=== PATIENT | female | born 1970 | race Caucasian/White ===

== ENCOUNTER 2016-04-15 05:31 | Inpatient (IN) | payer OTHER ==
[~2016-04-15] VITALS: Ht 154.9 cm; Wt 110.7 kg
[2016-04-15] MEDS: LACTATED RINGER'S 1000 ML INJ 1,000 ML IV SCH ×3 (03:15→19:00)
[~2016-04-15 05:31] MED LIST: ALBI1INJ SQ; METF-382 PO; METF500T4 PO; PRIL20CA9 PO; SERT-132 PO; SIMV20TA PO; TELM1TAB PO
[2016-04-15] MEDS ORDERED: LACTATED RINGER'S 1000 ML IV SCH (06:00)
[2016-04-15] MEDS ORDERED: SODIUM CHLORID 0.9% 500 ML IV SCH (06:00)
[2016-04-15] MEDS ORDERED: INSULIN HUMAN REGULAR 1,000 UNITS/10 ML VIAL SQ PRN (06:00)
[2016-04-15] MEDS ORDERED: ceFAZolin 2 GM PREMIX 50 ML IV SCH (06:00)
[2016-04-15] MEDS ORDERED: METOPROLOL TARTRATE 25 MG TAB PO PRN (06:00)
[2016-04-15 06:17] VITALS: BP 133/83; PULSE 94; RESP 18; TEMP 97.9; O2SAT 98
--- NOTE | 2016-04-15 06:54 | MH ---
cc: SERGEY OROZCO DATE OF ADMISSION 04/15/2016 DATE OF 1970 HISTORY AND PHYSICAL This is a 45-year-old white female who is a 4 para 3 with both vaginal births and section. Patient is scheduled for a laparoscopic-assisted vaginal hysterectomy, bilateral salpingectomy. The patient is aware of the risks, benefits and alternatives. The patient has been followed by Dr. De León with a large fibroid uterus about 18-weeks' size. The patient has an adequate vagina and good descent and has been extensively counseled about this surgery. The patient is aware of medical management versus surgical management and desires surgical management. PAST MEDICAL HISTORY Significant for high blood pressure and diabetes. GYNECOLOGIC HISTORY She has a history of an abnormal Pap smear, but none recently. OBSTETRICAL HISTORY She has had four pregnancies with three births, one ectopic . She has had two vaginal births and a section. PAST SURGICAL HISTORY 1. She had . 2. Endometrial ablation 3. Ectopic times one. SOCIAL HISTORY She does not smoke, drink or use drugs. She works as a nurse in the hospital. CURRENT MEDICATIONS 1. Metformin 2. Protonix 3. Simvastatin 4. Zoloft 5. Telmisartan ALLERGIES No known allergies. REVIEW OF SYSTEMS Only significant for severe pain with a large fibroid uterus, pain with intercourse and pain daily. PHYSICAL EXAM VITAL SIGNS: Stable and afebrile. NECK: Thyroid palpably normal. HEART: Regular rate and rhythm without murmur or gallop. LUNGS: Clear to auscultation bilaterally. ABDOMEN: Soft, nontender, nondistended. PELVIS: Uterus 18-week size almost to the umbilicus. The patient has an adequate vagina. Minimal descent secondary to the size of the uterus, but good movement. EXTREMITIES: Lower extremities, no edema. IMPRESSION At this time, large fibroid uterus. PLAN The patient will undergo a laparoscopic-assisted vaginal hysterectomy and bilateral salpingectomy. The patient is aware of risks, benefits and alternatives. MD ALLI Hernandez/SERVANDO /7:49 PM /6:45 AM
[2016-04-15] MEDS ORDERED: METHYLENE BLUE 10 MG/ML VIAL ONE (06:59)
[2016-04-15] MEDS ORDERED: LIDOCAINE 1%/EPINEPHrine 1:100,000 SOLN 20 ML VIAL ONE (06:59)
[2016-04-15] MEDS ORDERED: FAMOTIDINE 20 MG/2 ML VIAL ONE (07:02)
[2016-04-15] MEDS ORDERED: DEXAMETHASONE SOD PHOS 4 MG/ML VIAL ONE (07:02)
[2016-04-15] MEDS ORDERED: APREPITANT 40 MG CAP ONE (07:02)
[2016-04-15] MEDS ORDERED: ACETAMINOPHEN 1000 MG/100 ML VIAL IV ONE (07:03)
[2016-04-15 07:08] LABS: AUTOMATED NEUTROPHIL # 7.5 TH/MM3 (1.8-7.7); BASOPHIL # 0.1 TH/MM3 (0-0.2); BASOPHIL % 0.7 % (0.0-2.0); EOSINOPHIL # 0.2 TH/MM3 (0-0.4); EOSINOPHIL % 2.2 % (0.0-4.0); HEMATOCRIT 38.1 % (35.0-46.0); HEMO FLAGS DIFF FINAL; LYMPH % 20.8 % (9.0-44.0); LYMPHOCYTE # 2.2 TH/MM3 (1.0-4.8); MEAN CELL VOLUME 84.7 FL (80.0-100.0); MEAN CORPUSCULAR HGB CONC 34.3 % (32.0-36.0); MONO % 5.5 % (0.0-8.0); NEUT % 70.8 % (16.0-70.0); PLATELET COUNT 309 TH/MM3 (150-450); RED CELL DISTRIBUTION WIDTH 14.8 % (11.6-17.2); WHITE BLOOD COUNT 10.6 TH/MM3 (4.0-11.0)
[2016-04-15 07:12] LABS: BETA HCG QUANT LESS THAN 1 MIU/ML (0-5)
[2016-04-15] MEDS ORDERED: MIDAZOLAM HCL 2 MG/2 ML VIAL ONE (07:13)
[2016-04-15] MEDS ORDERED: PROPOFOL 200 MG/20 ML AMP IV ONE (08:42)
[2016-04-15] MEDS ORDERED: NEOSTIGMINE METHYLSULFATE 10 MG/10 ML VIAL IV PUSH ONE (08:42)
[2016-04-15] MEDS ORDERED: LACTATED RINGER'S 1000 ML INJ 2,000 ML IV ONE (08:42)
[2016-04-15] MEDS ORDERED: PHENYLEPH/NS 1000 MCG/10 ML SYR IV ONE (08:42)
[2016-04-15] MEDS ORDERED: ePHEDrine/NS 50 MG/5 ML SYR IV ONE (08:42)
[2016-04-15] MEDS ORDERED: ONDANSETRON HCL 4 MG/2 ML VIAL IV PUSH ONE ×3 (08:42→12:00)
[2016-04-15] MEDS ORDERED: KETOROLAC TROMETHAMINE 60 MG/2 ML (IM) VIAL IM ONE (08:42)
[2016-04-15] MEDS ORDERED: GLUCAGON 1 MG/ML VIAL OTHER PRN (11:15)
[2016-04-15] MEDS ORDERED: fentaNYL CITRATE 250 MCG/5 ML AMP ONE ×2 (11:15)
[2016-04-15] MEDS ORDERED: DEXTROSE 50% IN WATER 50 ML VIAL(D50) IV PUSH PRN (11:15)
[2016-04-15] MEDS ORDERED: INSULIN NovoLIN REGULAR SUPPLEMENTAL SCALE ONE (11:20)
--- NOTE | 2016-04-15 11:23 | PD.OP ---
Operative Report Date of Surgery: Apr 15, 2016 Preoperative Diagnosis: (1) Fibroids, intramural Postoperative Diagnosis: (1) Fibroids, intramural Procedure: operative laparoscopy with conversion to ELAP and FRANCISCO bilateral salpingectomy Anesthesia: general Surgeon: José Peñaloza Weaving Machine Operator(s): none Operation and Findings: bleeding with large fibroids and conversion to FRANCISCO José Peñaloza MD Apr 15, 2016 11:22
[2016-04-15] MEDS ORDERED: HYDROmorphone HCL PF 1 MG/ML VIAL IV PUSH PRN (11:30)
[2016-04-15] MEDS ORDERED: oxyCODONE/ACETAMINOPHEN 5 MG/325 MG TAB PO PRN (11:30)
[2016-04-15] MEDS ORDERED: *ONDANSETRON 4 MG VIAL PERIprocedural Use ONLY ONE (11:31)
[2016-04-15] MEDS ORDERED: DO NOT ADM ANY ANTICOAGULANT DRUGS XX PRN (11:45)
[2016-04-15] MEDS ORDERED: *PROMETHAZINE 25 MG/ML VIAL PERIprocedural use ONLY ONE (12:19)
[2016-04-15] MEDS ORDERED: ePHEDrine/NS 25 MG/5 ML SYR IV ONE (12:55)
[2016-04-15] MEDS ORDERED: LACTATED RINGER'S 1000 ML INJ 500 ML IV ONE (12:55)
[2016-04-15] MEDS ORDERED: ePHEDrine/NS 25 MG/5 ML SYR ONE (12:55)
[2016-04-15] MEDS ORDERED: INSULIN HUMAN REGULAR 1,000 UNITS/10 ML VIAL SQ ONE (13:00)
[2016-04-15 14:12] LABS: REVIEW FLAG FINAL
[2016-04-15 14:36] VITALS: BP 91/55; PULSE 81; RESP 18; TEMP 97.9
[2016-04-15] MEDS ORDERED: NALOXONE HCL 0.4 MG/ML AMP IV PRN (15:30)
[2016-04-15] MEDS ORDERED: HYDROmorphone HCL PCA 6 MG/30 ML IV SCH (15:30)
[2016-04-15] MEDS: INSULIN NovoLIN REGULAR SUPPLEMENTAL SCALE SQ SCH ×2 (16:35→21:29)
[2016-04-15 19:15] VITALS: BP 87/60; PULSE 103; RESP 18; TEMP 98.1
[2016-04-15] MEDS ORDERED: SODIUM CHLORIDE 0.9% FLUSH 5 ML FLUSH IV FLUSH SCH (21:00)
[2016-04-15] MEDS ORDERED: PCA - TOTAL MG DILAUDID DELIVERED PER SHIFT OTHER SCH (22:00)
[2016-04-16] VITALS: BP 85/55; PULSE 90; RESP 18; TEMP 97.9
[2016-04-16 04:30] VITALS: BP 85/55; PULSE 92; RESP 18; TEMP 97.9
[2016-04-16 04:55] LABS: HEMATOCRIT 24.3 % (35.0-46.0); REVIEW FLAG FINAL
[2016-04-16 05:12] LABS: BICARBONATE 30.1 MEQ/L (21.0-32.0); POTASSIUM 3.7 MEQ/L (3.5-5.1)
[2016-04-16] MEDS: INSULIN NovoLIN REGULAR SUPPLEMENTAL SCALE SQ SCH ×4 (07:00→21:33)
--- NOTE | 2016-04-16 07:30 | HHI.DCPOC ---
Discharge Care Plan Diagnosis: (1) Fibroids, intramural Report Symptoms to Your Doctor -Temperate above 100.5 degrees -Redness, of incision or excessive or foul smelling drainage -Unusual pain or calf pain -Increased vaginal bleeding -Painful or difficulty urinating -Feelings of extreme sadness or anxiety after 2 weeks Goals to Promote Your Health * To prevent worsening of your condition and complications * To maintain your health at the optimal level Directions to Meet Your Goals Take your medications as prescribed Follow your dietary instruction Follow activity as directed Ensure plenty of rest for recovery Drink fluids for hydration Keep your appointments as scheduled Take your immunizations and boosters as scheduled If your symptoms worsen call your PCP, if no PCP go to Urgent Care Center or Emergency Room Smoking is Dangerous to Your Health. Avoid second hand smoke Call the 24-hour crisis hotline for domestic abuse at José Peñaloza MD Apr 16, 2016 07:30
--- NOTE | 2016-04-16 07:59 | HHI.PR ---
Subjective Remarks Doing well, pain is well controlled, eating well. Objective Vital Signs Vital Signs Date Time Temp Pulse Resp B/P Pulse Ox O2 Delivery O2 Flow Rate FiO2 04/16/16 06:30 18 04/16/16 06:00 18 04/16/16 04:49 18 04/16/16 04:30 97.9 92 18 85/55 04/16/16 00:00 97.9 90 18 85/55 04/15/16 19:15 98.1 103 18 87/60 04/15/16 16:30 16 04/15/16 14:36 97.9 81 18 91/55 04/15/16 14:15 78 16 110/63 96 Room Air 04/15/16 14:00 97.6 75 16 105/60 95 Room Air 04/15/16 13:45 76 16 107/62 95 Room Air 04/15/16 13:30 77 15 108/64 98 Nasal Cannula 2 04/15/16 13:15 78 15 106/55 96 Nasal Cannula 2 04/15/16 13:00 85 15 101/50 95 Nasal Cannula 2 04/15/16 12:55 80 15 98/50 95 Nasal Cannula 2 04/15/16 12:50 75 15 85/47 95 Nasal Cannula 2 04/15/16 12:45 74 15 95/48 95 Nasal Cannula 2 04/15/16 12:30 73 15 98/52 94 Nasal Cannula 2 04/15/16 12:15 72 15 101/54 93 Nasal Cannula 2 04/15/16 12:00 75 15 105/59 98 Nasal Cannula 3 04/15/16 11:45 77 15 110/56 97 Nasal Cannula 3 04/15/16 11:30 74 15 101/51 96 Nasal Cannula 3 04/15/16 11:15 75 15 96/45 95 Nasal Cannula 3 04/15/16 11:03 98.1 85 17 96/43 94 Nasal Cannula 3 I/O 04/15/16 04/15/16 04/15/16 04/16/16 04/16/16 04/16/16 07:00 15:00 23:00 07:00 15:00 23:00 Intake Total 3250 ml Output Total 1575 ml 475 ml 1400 ml Balance 1675 ml -475 ml -1400 ml Intake IV Total 750 ml Other 2500 ml Output Urine Total 675 ml 475 ml 1400 ml Estimated Blood Loss 900 ml Result Diagram: 04/16/16 0423 04/16/16 0423 Objective Remarks Chest is clear, regular rate and rhythm. Abdomen is soft and non-distended. Incision is clean and dry. Ext no CCE. A/P Assessment and Plan Post Op Day 1 Doing well Home today and return to office in two weeks. José Peñaloza MD Apr 16, 2016 07:59
[2016-04-16 08:10] VITALS: BP 92/56; PULSE 96; RESP 16; TEMP 98.8; O2SAT 96
[2016-04-16] MEDS: LOSARTAN 50 MG TAB PO SCH (09:00)
[2016-04-16] MEDS ORDERED: metFORMIN HCL 500 MG TAB PO SCH ×3 (09:00→21:00)
[2016-04-16] MEDS ORDERED: SERTRALINE HCL 50 MG TAB PO SCH ×2 (09:00→21:00)
[2016-04-16] MEDS: PANTOPRAZOLE SOD 40 MG DELAYED RELEASE TAB PO SCH (09:32)
[2016-04-16] MEDS: oxyCODONE/ACETAMINOPHEN 5 MG/325 MG TAB PO PRN ×3 (10:26→22:21)
[2016-04-16] MEDS: IBUPROFEN 600 MG TAB PO PRN ×3 (10:26→22:21)
[2016-04-16] MEDS: LACTATED RINGER'S 1000 ML INJ 1,000 ML IV SCH (11:15)
[2016-04-16 12:45] VITALS: BP 126/66; PULSE 98; RESP 20; TEMP 98.3; O2SAT 97
[2016-04-16 16:50] VITALS: BP 116/69; PULSE 96; RESP 18; TEMP 98.7; O2SAT 96
[2016-04-16 19:00] VITALS: BP 120/72; PULSE 98; RESP 18; TEMP 98.6; O2SAT 98
[2016-04-16] MEDS ORDERED: metFORMIN HCL 500 MG TAB PO ONE (23:00)
[2016-04-17 00:30] VITALS: BP 116/75; PULSE 98; RESP 18; TEMP 98.5; O2SAT 95
[2016-04-17] MEDS: oxyCODONE/ACETAMINOPHEN 5 MG/325 MG TAB PO PRN (04:10)
[2016-04-17] MEDS: IBUPROFEN 600 MG TAB PO PRN (04:10)
[2016-04-17] MEDS: INSULIN NovoLIN REGULAR SUPPLEMENTAL SCALE SQ SCH (07:33)
[2016-04-17 07:45] VITALS: BP 109/73; PULSE 100; RESP 18; TEMP 99.9
--- NOTE | 2016-04-17 08:15 | HHI.PR ---
Subjective Remarks Doing well, pain is well controlled, eating well, patient had BM, and wants percocet. Objective Vital Signs Vital Signs Date Time Temp Pulse Resp B/P Pulse Ox O2 Delivery O2 Flow Rate FiO2 04/17/16 07:45 99.9 100 18 109/73 04/17/16 00:30 98.5 98 18 116/75 95 04/16/16 19:00 98.6 98 18 120/72 98 04/16/16 16:50 98.7 96 18 116/69 96 04/16/16 12:45 98.3 98 20 126/66 97 I/O 04/16/16 04/16/16 04/16/16 04/17/16 04/17/16 04/17/16 07:00 15:00 23:00 07:00 15:00 23:00 Intake Total 960 ml Output Total 1400 ml 950 ml Balance -1400 ml -950 ml 960 ml Intake Oral 960 ml Output Urine Total 1400 ml 950 ml # Voids 2 2 # Bowel Movements 1 Result Diagram: 04/16/16 0423 04/16/16 0423 Objective Remarks Chest is clear, regular rate and rhythm. Abdomen is soft and non-distended. Incision is clean and dry. steristrips in place Ext no CCE. A/P Assessment and Plan Post Op Day 2 Doing well Home today and return to office in two weeks. José Peñaloza MD Apr 17, 2016 08:15
[2016-04-17] MEDS ORDERED: OXYC1TAB63 PO (08:19)
--- NOTE | 2016-04-17 08:23 | HHI.DS ---
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 @ [facility] with José Peñaloza MD New Medications: Oxycodone-Acetaminophen (Oxycodone-Acetaminophen) 5-325 mg Tab 1 TAB PO Q4H PRN pain 1-5 #30 TAB Continued Medications: Albiglutide 4-Pack Inj (Tanzeum 4-Pack Inj) 30 Mg Pfpen 30 MG SQ Q7D #4 PEN Metformin ER (Metformin ER) 500 Mg Angel Luis 500 MG PO DAILY With evening meal Blood Sugar Management Ref 0 TAB Metformin ER (Metformin ER) 1,000 Mg Angel Luis 1000 MG PO HS With evening meal Blood Sugar Management #30 Ref 0 TAB Omeprazole (Prilosec) 20 Mg Cap 40 MG PO DAILY #30 Ref 0 CAP Sertraline (Sertraline) 50 Mg Tab 50 MG PO DAILY #30 Ref 0 TAB Simvastatin (Simvastatin) 20 Mg Tab 20 MG PO DAILY Cholesterol Management #30 Ref 0 TAB Telmisartan (Telmisartan) 40 Mg Tab 40 MG PO DAILY Blood Pressure Management #30 Ref 0 TAB José Peñaloza MD Apr 17, 2016 08:23
[2016-04-17] MEDS: LOSARTAN 50 MG TAB PO SCH ×2 (08:42→08:43)
[2016-04-17] MEDS: PANTOPRAZOLE SOD 40 MG DELAYED RELEASE TAB PO SCH (08:42)
--- NOTE | 2016-04-19 22:34 | MP ---
cc: SERGEY PEÑALOZA M.D. DATE OF SURGERY 04/15/76 PROCEDURE Operative laparoscopy with conversion to a total abdominal hysterectomy, bilateral salpingectomy. PREOPERATIVE DIAGNOSIS Large fibroid uterus. POSTOPERATIVE DIAGNOSIS Large fibroid uterus. ESTIMATED BLOOD LOSS [address] Valerie Peñaloza ANESTHESIA General. Dr. Nino Garay with Denise Trinh as a TIMBER SIZER OPERATOR COMPLICATIONS None FINDINGS Large fibroid uterus, large uterine arteries, normal ovaries bilaterally. PROCEDURE IN DETAIL After informed consent, the patient was taken to the operating room where she was placed under general anesthesia, placed in spine position, legs in the Yellowfin stirrups. Abdomen, perineum and vagina were prepped, draped normal sterile fashion. Stone was placed to gravity. After adequate anesthesia was assured, time-out was taken for procedure. A uterine manipulator was placed in the cervix without difficulty. The uterus was elevated, gloves were changed, 5 mm umbilical incision was made after injected with 1% lidocaine with epinephrine. We entered the abdomen under direct visualization. Abdomen was insufflated. Left and right lower quadrant were placed. Upper and lower abdomen with normal except for this very large fibroid uterus. We then proceeded to dissect the fallopian tubes off the ovaries and then continued down to the utero-ovarian ligament to the level of the round ligament and we stopped on the left side. On the right side, we did the same similar type procedure amputating the fallopian tubes. We progressed down to the broad ligament and then created a bladder flap. As we created a bladder flap, we had bleeding from the left uterine artery. This was cauterized with bipolar cautery. Good hemostasis was achieved. We then turned our attention to the right uterine artery where there was some oozing despite multiple attempts and continued bleeding. We had bleeding coming from the right uterine artery down near the level of the cervix. Bladder flap had been created. We could not stop the bleeding coming off the uterine side. The ovary had dropped free and was free from any bleeding despite using bipolar cautery. If we elevated, bleeding would stop but as soon as we relaxed the uterus, bleeding recurred. We could not stop that bleeding and decision was made to open the patient because we could not proceed with the vaginal portion until that bleeding was controlled. We opened the patient through the old Pfannenstiel skin incision by dissecting through the subcutaneous tissue of the fascia. The fascia was then nicked in the midline. The incision was extended laterally using Santiago scissors. Rectus muscles was dissected off the facial with sharp and blunt dissection. We entered the abdomen through the peritoneum. Uterus was brought through the incision. There was slight oozing coming from that uterine artery that was easily clamped with a Oralia clamp and cut and tied. Good hemostasis was then achieved. We then proceeded to take one straight clamp with a Sylvia clamp down the cervix clamping the cervical branch of the uterine arteries. We then amputated the uterus from the cervix for visualization. A self-retaining retractor was placed in the abdomen. The bowel was packed in the upper abdomen. The bladder was pushed down off the cervix dissecting down through the cervical branches of the uterine artery. We got to the level of the vagina after clamping and cutting twice. Once we reached the level of the vagina, we came across the top with a Oralia clamp, entered the vagina without difficulty using Solis scissors. We removed and amputated the cervix from the vaginal cuff. Multiple [id number] sutures of Vicryl suture. Good hemostasis was achieved. There were no hematomas or other abnormalities. The urine remained clear throughout the entire case. We then proceeded to irrigate the pelvis well. There was no active bleeding. Both ovaries were normal. All pedicles were noted to be hemostatic. All instruments were removed along with laps removed from the abdomen. Counts were correct. At this point, the fascia was then closed with #1 Vicryl suture. The subcutaneous tissue was closed and the skin was closed with subcuticular stitch. ____ was noted to be hemostatic prior to closure. 5-mm ports were all closed with simple 4-0 Monocryl. The patient tolerated the procedure well. She was awakened, taken to recovery room in stable condition. All lap, instrument counts reported as correct. Hemoglobin will be checked in a few hours. MD ALLI Hernandez/ /11:26 AM /10:12 PM
== END 2016-04-17 10:35 | disposition home or self-care (01) | DRG 743 ==
LOC: HSDC 05:31 → HSDI 11:15 → H1EA 14:28
PROVIDERS: ADMIT Obstetrics & Gynecology; ATTEND Obstetrics & Gynecology
PROC: 0UT70ZZ Resection of Bilateral Fallopian Tubes, Open Approach (ICD-10-PCS; 2016-04-15)
PROC: 0UT90ZZ Resection of Uterus, Open Approach (ICD-10-PCS; principal; 2016-04-15 07:21)
PROC: 0UTC0ZZ Resection of Cervix, Open Approach (ICD-10-PCS; 2016-04-15 07:21)
DX: D25.9 Leiomyoma of uterus, unspecified (principal); E11.9 Type 2 diabetes mellitus without complications; Z53.31 Laparoscopic surgical procedure converted to open procedure
CPT/HCPCS: 80048; 82948; 84702; 85014; 85018; 85025; 86850; 86900; 86901; 86920; 88307; J0131; J0690; J1100; J1170; J1815; J1885; J2250; J2370; J2405; J2550; J2710; J3010; J7120; J8501

== ENCOUNTER → 2016-09-12 | Outpatient (CLI) | payer OTHER ==
[~2016-09-12] MED LIST changes: +OXYC1TAB63 PO
[2016-09-12 13:13] LABS: AUTOMATED NEUTROPHIL # 7.3 TH/MM3 (1.8-7.7); BASOPHIL # 0.1 TH/MM3 (0-0.2); BASOPHIL % 0.8 % (0.0-2.0); EOSINOPHIL # 0.2 TH/MM3 (0-0.4); EOSINOPHIL % 1.7 % (0.0-4.0); HEMATOCRIT 30.6 % (35.0-46.0); HEMO FLAGS DIFF FINAL; LYMPH % 24.5 % (9.0-44.0); LYMPHOCYTE # 2.6 TH/MM3 (1.0-4.8); MEAN CELL VOLUME 65.5 FL (80.0-100.0); MEAN CORPUSCULAR HGB CONC 30.5 % (32.0-36.0); MONO % 4.8 % (0.0-8.0); NEUT % 68.2 % (16.0-70.0); PLATELET COUNT 403 TH/MM3 (150-450); RED BLOOD COUNT 4.67 MIL/MM3 (4.00-5.30); RED CELL DISTRIBUTION WIDTH 20.2 % (11.6-17.2); WHITE BLOOD COUNT 10.7 TH/MM3 (4.0-11.0)
[2016-09-12 13:46] LABS: ANION GAP 8 MEQ/L (5-15); AST (GOT) 7 U/L (15-37); BICARBONATE 26.1 MEQ/L (21.0-32.0); BLOOD UREA NITROGEN 10 MG/DL (7-18); CHLORIDE 102 MEQ/L (98-107); GLOMERULAR FILTRATION RATE 155 ML/MIN (>89); GLUCOSE,FASTING 150 MG/DL (74-99); POTASSIUM 4.2 MEQ/L (3.5-5.1); SODIUM (NA) 136 MEQ/L (136-145)
[2016-09-12 13:47] LABS: ALT (GPT) 17 U/L (10-53)
[2016-09-12 13:56] LABS: ALKALINE PHOSPHATASE 80 U/L (45-117); HDL CHOLESTEROL 40.1 MG/DL (40.0-60.0); LDL CHOLESTEROL 67 MG/DL (0-99); TOTAL BILIRUBIN ADULT 0.3 MG/DL (0.2-1.0)
[2016-09-12 15:46] LABS: HEMOGLOBIN A1a 1.9 %; HEMOGLOBIN A1b 2.5 %; HEMOGLOBIN Ao 79.4 %; HEMOGLOBIN LA1C 2.3 %; HEMOGLOBIN P3 4.3 %
== END ==
LOC: PLAB 11:14
PROVIDERS: ATTEND Family Medicine
DX: I10 Essential (primary) hypertension (principal)
CPT/HCPCS: 80053; 80061; 83036; 84443; 85025

== ENCOUNTER → 2016-09-25 | Outpatient (CLI) | payer OTHER ==
[2016-09-25 15:57] LABS: RETIC % 1.6 % (0.4-3.0); REVIEW FLAG FINAL
[2016-09-25 16:03] LABS: TRANSFERRIN IRON PROFILE 387 MG/DL (200-360)
[2016-09-25 16:06] LABS: FERRITIN 6 NG/ML (8-252)
== END ==
LOC: PLAB 12:03
PROVIDERS: ATTEND Family Medicine
DX: D50.9 Iron deficiency anemia, unspecified (principal)
CPT/HCPCS: 36415; 82728; 83540; 83550; 85044

== ENCOUNTER → 2016-12-24 | Outpatient (CLI) | payer OTHER ==
[~2016-12-24] VITALS: Ht 154.9 cm; Wt 103.4 kg
[~2016-12-24] MED LIST changes: +CHLORHEXIDINE GLUCONATE 2 % 1 PACK (2 CLOTHS) TOPICAL PRN; +EMPA1TAB PO; +FERR325T8 PO; +FOLI400T PO; +GLIP1TAB60 PO; +INSULIN HUMAN REGULAR 1,000 UNITS/10 ML VIAL SQ PRN; +LACTATED RINGER'S 1000 ML IV PRN; +LIDOCAINE HCL 1% PF 5 ML AMPULE OTHER ONE; +METF1000 PO; -METF500T4 PO; +METOPROLOL TARTRATE 25 MG TAB PO PRN; +OMEP20TA PO; -OXYC1TAB63 PO; +POVIDONE IODINE 5% (ANTISEPSIS KIT) 4 APPLICATIONS EACH NARE PRN; -PRIL20CA9 PO; +PROPOFOL 200 MG/20 ML AMP IV PUSH ONE; +SACC1CAP3 PO; -SERT-132 PO; +SERT25TA83 PO; +SODIUM CHLORID 0.9% 500 ML IV PRN; +VITA500C18 PO
[2016-12-24 09:39] VITALS: BP 115/73; PULSE 92; RESP 16; TEMP 98.1; O2SAT 98
--- NOTE | 2016-12-24 11:55 | GIPROC ---
[facility] [address] [facility]. [facility] [place], [address] EGD PROCEDURE REPORT EXAM DATE: 12/24/2016 PATIENT NAME: Simin Nicholson MR #: [id number] BIRTHDATE: 1970 ATTENDING: Nikolay Bartlett MD ORDER #: [id number] SASH INSTALLER: Cameron Riley Pat STATUS: outpatient INDICATIONS: The patient is a 46 yr old female here for an EGD due to iron deficiency anemia, heartburn, dyspepsia, and unexplained diarrhea PROCEDURE PERFORMED: EGD w/ biopsy MEDICATIONS: None and Per Anesthesia. TOPICAL ANESTHETIC: none CONSENT: The patient understands the risks and benefits of the procedure and understands that these risks include, but are not limited to: sedation, allergic reaction, infection, perforation and/or bleeding. Alternative means of evaluation and treatment include, among others: physical exam, x-rays, and/or surgical intervention. The patient elects to proceed with this endoscopic procedure. medical equipment was checked for proper function. Hand hygiene and appropriate measures for infection prevention was taken. After the risks, benefits and alternatives of the procedure were thoroughly explained, Informed consent was verified, confirmed and timeout was successfully executed by the treatment team. The patient was anesthetized with topical anesthesia and the Pentax [id number] and [id number] endoscope was introduced through the mouth and advanced to the third portion of the duodenum. Retroflexed views revealed a hiatal hernia The gastroscope was then slowly withdrawn and removed. ESOPHAGUS: The mucosa of the esophagus appeared normal. Multiple biopsies were performed. The esophagus was otherwise normal. STOMACH: A 1cm hiatal hernia was noted. The stomach otherwise appeared normal. DUODENUM: The duodenal mucosa appeared normal in the duodenal bulb, 2nd part duodenum, and 3rd part duodenum. Cold forcep biopsies were taken in the second portion. ADVERSE EVENTS: There were no complications. IMPRESSIONS: 1. The esophagus appeared normal; multiple biopsies were performed small tongue distal esophagus to R/O Senior's. 2. The esophagus was otherwise normal 3. 1cm hiatal hernia 4. The stomach otherwise appeared normal 5. Normal duodenal mucosa in the duodenal bulb, 2nd part duodenum, and 3rd part duodenum 6. Retroflexed views revealed a hiatal hernia RECOMMENDATIONS: Await biopsy results. Biopsy results will not be ready for 7-10 days. If you don't hear from us in two weeks, call our office for biopsy results. PATIENT CONDITION: stable DISPOSITION: Home REPEAT EXAM: NONE Nikolay Bartlett MD eSigned: Nikolay Bartlett MD 12/24/2016 11:54 AM cc: John Julien M.D. PATIENT NAME: Simin Nicholson Fifi MR#: [id number]
--- NOTE | 2016-12-24 12:06 | GIPROC ---
[facility] [address] [facility]. [facility], [address] COLONOSCOPY PROCEDURE REPORT EXAM DATE: 12/24/2016 PATIENT NAME: Simin Nicholson MR #: [id number] BIRTHDATE: 1970 ENDOSCOPIST: Nikolay Bartlett MD ORDER #: [id number] PILE OPERATOR: Cameron Riley Pat STATUS: outpatient INDICATIONS: The patient is a 46 yr old female here for a colonoscopy due to iron deficiency anemia and unexplained diarrhea PROCEDURE PERFORMED: Colonoscopy with biopsy Colonoscopy with polypectomy MEDICATIONS: None and Per Anesthesia. PREP QUALITY: excellent PREP TYPE:Other: PREP TYPE:Other: Prepopik ESTIMATED BLOOD LOSS: None CONSENT: The patient understands the risks and benefits of the procedure and understands that these risks include, but are not limited to: sedation, allergic reaction, infection, perforation and/or bleeding. Alternative means of evaluation and treatment include, among others: physical exam, x-rays, and/or surgical intervention. The patient elects to proceed with this endoscopic procedure. medical equipment was checked for proper function. Hand hygiene and appropriate measures for infection prevention was taken. After the risks, benefits and alternatives of the procedure were thoroughly explained, Informed consent was verified, confirmed and timeout was successfully executed by the treatment team. A digital exam revealed no abnormalities of the rectum The Pentax [id number] and [id number] endoscope was introduced through the anus and advanced to the terminal ileum which was intubated for a short distance. The instrument was then slowly withdrawn as the colon was fully examined. COLON FINDINGS: Mild diverticulosis was noted in the sigmoid colon. A polypoid shaped pedunculated polyp measuring 9 mm in size was found in the proximal transverse colon. A polypectomy was performed using snare cautery. The resection was complete and the polyp tissue was completely retrieved. A polypoid shaped sessile polyp measuring 3 mm in size was found in the rectum. A polypectomy was performed using snare cautery. The resection was complete and the polyp tissue was completely retrieved. The colon mucosa was otherwise normal. Multiple random biopsies of the area were performed. Retroflexion was performed and was normal The scope was then completely withdrawn from the patient and the procedure terminated. PROCEDURE WITHDRAWAL TIME:15minutes ADVERSE EVENTS: There were no complications. IMPRESSIONS: 1. Mild diverticulosis was noted in the sigmoid colon 2. A pedunculated polyp was found in the proximal transverse colon; polypectomy was performed using snare cautery 3. A sessile polyp was found in the rectum; polypectomy was performed using snare cautery 4. The colon mucosa was otherwise normal; multiple random biopsies of the area were performed for microscopic colitis. 5. Retroflexion was performed and was normal 6. Revealed no abnormalities of the rectum RECOMMENDATIONS: Await biopsy results. Biopsy results will not be ready for 7-10 days. If you don't hear from us in two weeks, call our office for results. RECALL: Return 5 years Colonoscopy Nikolay Bartlett MD eSigned: Nikolay Bartlett MD 12/24/2016 12:05 PM cc: John Julien M.D. PATIENT NAME: Simin Nicholson MR#: [id number]
[2016-12-24 12:51] VITALS: BP 117/86; PULSE 78; RESP 16; TEMP 97.5; O2SAT 100
== END ==
LOC: HEND 08:46
PROVIDERS: ATTEND Internal Medicine Gastroenterology
DX: D50.9 Iron deficiency anemia, unspecified (principal); R10.13 Epigastric pain; R19.7 Diarrhea, unspecified; K44.9 Diaphragmatic hernia without obstruction or gangrene; D12.3 Benign neoplasm of transverse colon; D12.8 Benign neoplasm of rectum; K57.90 Diverticulosis of intestine, part unspecified, without perforation or abscess without bleeding
CPT/HCPCS: 00740; 43239; 45380; 45385; 88305; J7120

== ENCOUNTER → 2016-12-30 | Outpatient (CLI) | payer OTHER ==
[~2016-12-30] MED LIST changes: -CHLORHEXIDINE GLUCONATE 2 % 1 PACK (2 CLOTHS) TOPICAL PRN; -INSULIN HUMAN REGULAR 1,000 UNITS/10 ML VIAL SQ PRN; -LACTATED RINGER'S 1000 ML IV PRN; -LIDOCAINE HCL 1% PF 5 ML AMPULE OTHER ONE; -METF-382 PO; -METOPROLOL TARTRATE 25 MG TAB PO PRN; -POVIDONE IODINE 5% (ANTISEPSIS KIT) 4 APPLICATIONS EACH NARE PRN; -PROPOFOL 200 MG/20 ML AMP IV PUSH ONE; -SODIUM CHLORID 0.9% 500 ML IV PRN
[2016-12-30 09:13] LABS: AUTOMATED NEUTROPHIL # 8.5 TH/MM3 (1.8-7.7); BASOPHIL # 0.1 TH/MM3 (0-0.2); BASOPHIL % 0.6 % (0.0-2.0); EOSINOPHIL # 0.2 TH/MM3 (0-0.4); EOSINOPHIL % 1.4 % (0.0-4.0); HEMATOCRIT 42.2 % (35.0-46.0); LYMPH % 18.3 % (9.0-44.0); LYMPHOCYTE # 2.1 TH/MM3 (1.0-4.8); MEAN CELL VOLUME 82.6 FL (80.0-100.0); MEAN CORPUSCULAR HEMOGLOBIN 26.4 PG (27.0-34.0); MONO % 5.1 % (0.0-8.0); NEUT % 74.6 % (16.0-70.0); PLATELET COUNT 323 TH/MM3 (150-450); RED CELL DISTRIBUTION WIDTH 20.4 % (11.6-17.2); WHITE BLOOD COUNT 11.4 TH/MM3 (4.0-11.0)
[2016-12-30 09:14] LABS: RETIC % 1.1 % (0.4-3.0)
[2016-12-30 09:16] LABS: HEMO FLAGS AUTO DIFF
[2016-12-30 09:31] LABS: ANION GAP 7 MEQ/L (5-15); AST (GOT) 7 U/L (15-37); BICARBONATE 25.5 MEQ/L (21.0-32.0); BLOOD UREA NITROGEN 9 MG/DL (7-18); CHLORIDE 105 MEQ/L (98-107); GLOMERULAR FILTRATION RATE 119 ML/MIN (>89); GLUCOSE,FASTING 144 MG/DL (74-99); MAGNESIUM 1.9 MG/DL (1.5-2.5); POTASSIUM 4.3 MEQ/L (3.5-5.1); SODIUM (NA) 137 MEQ/L (136-145); TRANSFERRIN IRON PROFILE 313 MG/DL (200-360)
[2016-12-30 09:32] LABS: ALT (GPT) 16 U/L (10-53)
[2016-12-30 09:34] LABS: ALKALINE PHOSPHATASE 72 U/L (45-117); TOTAL BILIRUBIN ADULT 0.3 MG/DL (0.2-1.0)
[2016-12-30 09:35] LABS: FERRITIN 12 NG/ML (8-252)
[2016-12-30 10:22] LABS: OVALOCYTES 1+ (NORMAL); PLATELET ESTIMATE SMEAR NORMAL (NORMAL); PLATELET MORPHOLOGY NORMAL (NORMAL); SCAN/DIFF AUTO DIFF CONFIRMED
[2016-12-30 10:48] LABS: MICRO ALBUMIN RANDOM URINE RAW 8.7 MG/L (0.0-30.0)
== END ==
LOC: CLAB 08:31
PROVIDERS: ATTEND Internal Medicine Endocrinology, Diabetes & Metabolism
DX: E11.65 Type 2 diabetes mellitus with hyperglycemia (principal); I10 Essential (primary) hypertension; D50.9 Iron deficiency anemia, unspecified
CPT/HCPCS: 36415; 80053; 82043; 82728; 83540; 83550; 83735; 85025; 85044

== ENCOUNTER → 2017-03-13 | Outpatient (CLI) | payer OTHER ==
[~2017-03-13] MED LIST changes: +FERR325T18 PO; -FERR325T8 PO; -OMEP20TA PO; +OMEP20TA93 PO
[2017-03-13 13:53] LABS: ANION GAP 5 MEQ/L (5-15); AST (GOT) 6 U/L (15-37); BICARBONATE 30.6 MEQ/L (21.0-32.0); BLOOD UREA NITROGEN 9 MG/DL (7-18); CHLORIDE 102 MEQ/L (98-107); GLOMERULAR FILTRATION RATE 136 ML/MIN (>89); GLUCOSE,FASTING 117 MG/DL (74-99); POTASSIUM 4.8 MEQ/L (3.5-5.1); SODIUM (NA) 138 MEQ/L (136-145)
[2017-03-13 13:56] LABS: ALKALINE PHOSPHATASE 70 U/L (45-117); ALT (GPT) 17 U/L (10-53); HDL CHOLESTEROL 41.8 MG/DL (40.0-60.0); LDL CHOLESTEROL 70 MG/DL (0-99); LDL CHOLESTEROL DIRECT 79 MG/DL (0-99); TOTAL BILIRUBIN ADULT 0.5 MG/DL (0.2-1.0)
[2017-03-13 14:50] LABS: HEMOGLOBIN A1a 1.4 %; HEMOGLOBIN A1b 2.1 %; HEMOGLOBIN Ao 83.3 %; HEMOGLOBIN LA1C 2.1 %; HEMOGLOBIN P3 3.7 %
== END ==
LOC: PLAB 10:30
PROVIDERS: ATTEND Internal Medicine Endocrinology, Diabetes & Metabolism
DX: E11.65 Type 2 diabetes mellitus with hyperglycemia (principal); I10 Essential (primary) hypertension; E78.5 Hyperlipidemia, unspecified
CPT/HCPCS: 36415; 80053; 80061; 83036; 83721

== ENCOUNTER → 2017-06-29 | Outpatient (CLI) | payer OTHER ==
[2017-06-29 14:32] LABS: AUTOMATED NEUTROPHIL # 7.5 TH/MM3 (1.8-7.7); BASOPHIL # 0.1 TH/MM3 (0-0.2); BASOPHIL % 0.9 % (0.0-2.0); EOSINOPHIL # 0.2 TH/MM3 (0-0.4); EOSINOPHIL % 1.5 % (0.0-4.0); HEMATOCRIT 43.6 % (35.0-46.0); HEMOGLOBIN 14.2 GM/DL (11.6-15.3); LYMPH % 21.7 % (9.0-44.0); LYMPHOCYTE # 2.3 TH/MM3 (1.0-4.8); MEAN CELL VOLUME 89.9 FL (80.0-100.0); MEAN CORPUSCULAR HEMOGLOBIN 29.3 PG (27.0-34.0); MEAN CORPUSCULAR HGB CONC 32.6 % (32.0-36.0); MEAN PLATELET VOLUME 8.8 FL (7.0-11.0); MONO % 5.7 % (0.0-8.0); MONOCYTE # 0.6 TH/MM3 (0-0.9); NEUT % 70.2 % (16.0-70.0); PLATELET COUNT 340 TH/MM3 (150-450); RED BLOOD COUNT 4.85 MIL/MM3 (4.00-5.30); RED CELL DISTRIBUTION WIDTH 14.5 % (11.6-17.2); WHITE BLOOD COUNT 10.6 TH/MM3 (4.0-11.0)
[2017-06-29 14:57] LABS: ALBUMIN 3.4 GM/DL (3.4-5.0); ALT (GPT) 15 U/L (10-53); AST (GOT) 4 U/L (15-37); BICARBONATE 27.1 MEQ/L (21.0-32.0); BLOOD UREA NITROGEN 14 MG/DL (7-18); CALCIUM 8.6 MG/DL (8.5-10.1); CHLORIDE 101 MEQ/L (98-107); CREATININE 0.48 MG/DL (0.50-1.00); GLOMERULAR FILTRATION RATE 139 ML/MIN (>89); GLUCOSE,FASTING 110 MG/DL (74-99); SODIUM (NA) 138 MEQ/L (136-145)
[2017-06-29 14:59] LABS: ALKALINE PHOSPHATASE 65 U/L (45-117); TOTAL BILIRUBIN ADULT 0.5 MG/DL (0.2-1.0); TOTAL PROTEIN 7.3 GM/DL (6.4-8.2)
[2017-06-29 15:10] LABS: % SATURATION IRON PROFILE 23.2 % (20-50); CHOLESTEROL 177 MG/DL (120-200); IRON (FE) 108 MCG/DL (50-170); TOTAL IRON BINDING CAPACITY 466 MCG/DL (250-450)
[2017-06-29 15:15] LABS: CHOLESTEROL/ HDL RATIO 4.38 RATIO; HDL CHOLESTEROL 40.4 MG/DL (40.0-60.0); LDL CHOLESTEROL 107 MG/DL (0-99); LDL CHOLESTEROL DIRECT 128 MG/DL (0-99); TRIGLYCERIDES 148 MG/DL (42-150)
[2017-06-29 15:53] LABS: HEMOGLOBIN A1C 7.2 % (4.3-6.0)
== END ==
LOC: PLAB 11:34
PROVIDERS: ATTEND Internal Medicine Endocrinology, Diabetes & Metabolism
DX: D50.9 Iron deficiency anemia, unspecified (principal); E78.5 Hyperlipidemia, unspecified; E11.65 Type 2 diabetes mellitus with hyperglycemia
CPT/HCPCS: 80053; 80061; 82043; 83036; 83540; 83550; 83721; 85025